=== PATIENT | male | born 1950 | race Caucasian/White ===

== ENCOUNTER 2016-10-20 14:16 | Emergency (ER) | payer OTHER ==
[~2016-10-20] VITALS: Ht 172.7 cm; Wt 132.2 kg
[~2016-10-20 14:16] MED LIST: INVOKANA100 MG PO; LOSARTAN POTASS50 MG PO; PAROXETINE HCL30 MG PO; PERCOCET 5/31 TABLET PO; SIMVASTATIN10 MG PO
[2016-10-20 14:50] LABS: HEMATOCRIT 46.7 % (38.0-50.0); MCH 31.2 PG (29.0-34.0); MCHC 34.3 G/DL (30.0-36.0); PLATELET COUNT 267 K/uL (156-360); RBC DIS.WIDTH-CV 13.3 % (11.8-14.6); RBC DIS.WIDTH-SD 45.2 % (39-53); RED BLOOD COUNT 5.13 M/uL (4.00-5.50); WHITE BLOOD COUNT 8.9 K/uL (4.1-10.2)
[2016-10-20 15:04] LABS: CHLORIDE 103 mEq/L (99-109); POTASSIUM 4.5 mEq/L (3.7-5.4); SODIUM 137 mEq/L (136-147)
[2016-10-20 15:05] LABS: GLUCOSE 244 mg/dL (70-99)
[2016-10-20 15:07] LABS: ANION GAP 13 MEQ/L (2-14)
[2016-10-20 15:09] LABS: GFR ESTIMATE (CALCULATED) > 59 mL/min/
[2016-10-20 15:10] LABS: UREA NITROGEN (BUN) 20 mg/dL (9-23)
[2016-10-20 15:14] LABS: TROP-I INTERPRETATION NEGATIVE; TROPONIN-I < 0.01 ng/mL (0.0-0.30)
[2016-10-20 17:03] LABS: LIPASE 50 U/L (1.0-51.0)
[2016-10-20 17:15] LABS: TROP-I INTERPRETATION NEGATIVE; TROPONIN-I < 0.01 ng/mL (0.0-0.30)
[2016-10-20] MEDS ORDERED: PRILOSEC OTC20 MG PO (18:42)
[2016-10-20 18:56] VITALS: BP 106/72
== END 2016-10-20 18:58 | disposition home or self-care (01) ==
LOC: EME 14:16
PROVIDERS: Emergency Medicine
DX: R10.11 Right upper quadrant pain (principal); R10.13 Epigastric pain; R14.2 Eructation; I10 Essential (primary) hypertension; E78.5 Hyperlipidemia, unspecified; Z87.891 Personal history of nicotine dependence
CPT/HCPCS: 80048; 83690; 84484; 85027; 93005; 99281; 99283

== ENCOUNTER 2017-08-26 17:09 | Emergency (ER) | payer OTHER ==
[~2017-08-26] VITALS: Ht 175.3 cm; Wt 128.2 kg
[~2017-08-26 17:09] MED LIST changes: +PRILOSEC OTC20 MG PO
[2017-08-26] MEDS ORDERED: PERCOCET 5/31 TABLET PO (18:44)
[2017-08-26 19:30] VITALS: BP 122/62
== END 2017-08-26 19:30 | disposition home or self-care (01) ==
LOC: EME 17:09 → EXP 17:09
PROC: 2W3RX1Z Immobilization of Left Lower Leg using Splint (ICD-10-PCS; principal; 2017-08-26)
DX: S92.342A Displaced fracture of fourth metatarsal bone, left foot, initial encounter for closed fracture (principal); W22.8XXA Striking against or struck by other objects, initial encounter; E11.9 Type 2 diabetes mellitus without complications; I10 Essential (primary) hypertension; Z88.5 Allergy status to narcotic agent; Z88.1 Allergy status to other antibiotic agents; Z87.891 Personal history of nicotine dependence
CPT/HCPCS: 73630; 99281; 99284